=== PATIENT | female | born 1940 | race Caucasian/White ===

== ENCOUNTER 2018-03-10 08:29 | Emergency (ER) | payer MEDICARE, OTHER ==
[~2018-03-10] VITALS: Ht 154.9 cm; Wt 58.0 kg
[2018-03-10] MEDS ORDERED: potassium Cl 20 mEq SR tablet PO STA (08:47)
[2018-03-10] MEDS ORDERED: diltiazem 30mg tablet PO ONE (08:50)
[2018-03-10] MEDS ORDERED: normal saline 1000ML IV soln IVB ONE (08:50)
[2018-03-10] MEDS ORDERED: diltiazem 5mg/ml 5ml inj. IV ONE ×2 (08:50→09:25)
[2018-03-10] MEDS ORDERED: LORazepam 2 mg/ml vial IV ONE (08:50)
[2018-03-10] MEDS: magnesium 1gm/100ml D5W IVPB 100 ML IV SCH ×2 (08:59→10:26)
[2018-03-10 09:15] LABS: PARTIAL THROMBOPLASTIN TIME 27 SECONDS (22-32); PROTHROMBIN TIME 10.4 SECONDS (9.0-12.0)
[2018-03-10 09:20] LABS: ALANINE AMINOTRANSFERASE 32 U/L (12-78); ALBUMIN/GLOBULIN RATIO 1.2 (1.1-1.5); ALKALINE PHOSPHATASE 76 IU/L (46-116); ANION GAP 9 (8-16); ASPARTATE AMINO TRANSFERASE 18 U/L (10-37); BILIRUBIN,TOTAL 0.5 MG/DL (0.1-1.0); BLOOD UREA NITROGEN 15 MG/DL (7-18); BUN/CREATININE RATIO 16.5 (6.6-38.0); CALCIUM 9.2 MG/DL (8.5-10.1); CHLORIDE 104 MMOL/L (99-107); CREATININE 0.91 MG/DL (0.40-0.90); GLUCOSE 108 MG/DL (70-104); POTASSIUM 3.3 MMOL/L (3.5-5.1); SODIUM 141 MMOL/L (135-145); TOTAL CARBON DIOXIDE 28.3 MMOL/L (24-32); TOTAL PROTEIN 7.3 G/DL (6.4-8.2); eGFR 60 ML/MIN
[2018-03-10 09:38] LABS: BASOPHILS % (AUTO) 0.6 % (0-1); EOSINOPHILS # (AUTO) 0.2 X10'3 (0-0.9); EOSINOPHILS % (AUTO) 2.7 % (0-6); HEMATOCRIT 44.3 % (35.0-45.0); LYMPHOCYTES # (AUTO) 1.1 X10'3 (1.1-4.8); LYMPHOCYTES % (AUTO) 18.8 % (21-51); MEAN CORPUSCULAR HGB CONC 33.9 % (33.0-36.5); MEAN CORPUSCULAR VOLUME 91.3 FL (78-98); MEAN PLATELET VOLUME 8.1 FL (7.4-10.4); MONOCYTES # (AUTO) 0.5 X10'3 (0-0.9); MONOCYTES % (AUTO) 8.1 % (2-12); NEUTROPHILS % (AUTO) 69.8 % (42-75); PLATELET COUNT 311 X10'3 (140-440); RED BLOOD COUNT 4.85 X10'6 (4.20-5.60); RED CELL DISTRIBUTION WIDTH 12.6 % (11.5-14.5); WHITE BLOOD COUNT 5.8 X10'3 (4.5-11.0)
[2018-03-10] MEDS ORDERED: potassium 10mEq/100ml NS w/LIDOcaine (10mg/bag) IV ONE (10:05)
[2018-03-10] MEDS ORDERED: metoprolol tartrate 1mg/ml inj IV ONE (10:10)
[2018-03-10] MEDS ORDERED: METO25TA6 PO (11:16)
[2018-03-10] MEDS ORDERED: POTA20TA19 PO (11:16)
[2018-03-10 12:02] VITALS: BP 112/68
== END 2018-03-10 12:05 | disposition home or self-care (01) ==
LOC: ER 08:31
DX: I47.1 Supraventricular tachycardia (principal); E87.6 Hypokalemia; Z88.5 Allergy status to narcotic agent; Z79.899 Other long term (current) drug therapy
CPT/HCPCS: 36415; 71045; 80053; 83880; 84443; 84484; 85025; 85610; 85730; 93005; 96365; 96368; 96375; 96376; 99285; J2060; J3480; J3490